=== PATIENT | female | born 1955 | race Caucasian/White ===

== ENCOUNTER → 2018-08-13 | Outpatient (CLI) | payer OTHER | LOC: M.LAB 04:44 | DX: E87.6 Hypokalemia (principal) ==

== ENCOUNTER 2019-03-22 12:46 | Emergency (ER) | payer OTHER ==
[~2019-03-22] VITALS: Ht 157.5 cm; Wt 83.5 kg
[2019-03-22] MEDS ORDERED: NORVASC 2.5 MG2.5 M1 PO (12:55)
[2019-03-22] MEDS ORDERED: MICROZIDE12.5 MG PO (12:56)
[2019-03-22] MEDS ORDERED: OSTEO BI-FLEX1 EAC3 PO (12:56)
[2019-03-22 13:36] LABS: ABSOLUTE MONOCYTES 0.3 thou/uL (0.0-1.2); BASOPHILS 0.3 %; EOSINOPHILS 0.1 %; HEMATOCRIT 44.8 % (37.0-47.0); HEMOGLOBIN 15.4 gm/dL (12.0-15.0); LYMPHOCYTES 15.5 %; MCH 30.1 pg (26.0-34.0); MCHC 34.4 g/dL (28.0-37.0); MCV 87.5 fL (80.0-100.0); MONOCYTES 5.2 %; MPV 8.6 fl. (7.2-11.1); NUCLEATED RBCS 0 /100WBC; PLATELET COUNT* 246 thou/uL (150-400); POLYS 78.9 %; RBC 5.12 mil/uL (4.20-5.00); RDW-CV 13.9 % (10.5-14.5); WBC 6.3 thou/uL (4.0-11.0)
[2019-03-22 13:41] LABS: CALCIUM 9.7 mg/dL (8.5-10.1); POTASSIUM 3.3 mmol/L (3.5-5.1)
[2019-03-22 13:45] LABS: APTT 38.7 Seconds (25.0-31.3); PROTIME 10.5 Seconds (9.20-11.50)
[2019-03-22 13:51] LABS: TOTAL BILIRUBIN 0.4 mg/dL (<0.1-1.0)
[2019-03-22 14:49] VITALS: BP 121/70
--- NOTE | 2019-03-23 09:58 | EKG ---
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: [facility] : 1955 Requested By: Antonio Myers Order Number: [id number] MD: Sha Figueroa Measurements Intervals [place] Rate: 60 P: 27 VT: 142 QRS: -6 QRSD: 106 T: 6 QT: 483 QTc: 483 Interpretive Statements Sinus rhythm Left ventricular hypertrophy Compared to ECG 05/05/2011 10:00:45 Left ventricular hypertrophy now present Electronically Signed On 03-23-2019 9:57:42 TRAINING DEVELOPMENT SPECIALIST by Sha Figueroa [email or web address] <ELECTRONICALLY SIGNED> By: Sha Figueroa MD, [facility] 03/23/19 [id number] Sha Figueroa MD, FACC /EPI
== END 2019-03-22 14:49 | disposition home or self-care (01) ==
LOC: M.ERS 12:46
PROVIDERS: Family Medicine
DX: R51 Headache (principal); R11.2 Nausea with vomiting, unspecified; I10 Essential (primary) hypertension; E89.0 Postprocedural hypothyroidism; Z88.2 Allergy status to sulfonamides